=== PATIENT | female | born 1960 | race Caucasian/White ===

== ENCOUNTER 2018-07-04 06:26 | Day surgery (SDC) | payer BC ==
[2018-07-04] MEDS ORDERED: Lactated Ringers 1,000 ML IV SCH (07:00)
[2018-07-04] MEDS ORDERED: Midazolam 1 MG/ML 2 ML SDV ONE (07:16)
[2018-07-04] MEDS ORDERED: fentaNYL 100 MCG/2 ML SDV ONE (07:16)
[2018-07-04] MEDS ORDERED: Propofol 200 MG/20 ML SDV ONE (07:16)
[2018-07-04 09:09] VITALS: BP 105/65
--- NOTE | 2018-07-04 14:02 | OR ---
DATE OF PROCEDURE: 07/04/2018 PREOPERATIVE DIAGNOSIS: Strong family history of colon cancer--father had colon cancer. POSTOPERATIVE DIAGNOSES: 1. Unremarkable colonoscopy. 2. Strong family history of colon cancer--father had colon cancer. PROCEDURE: Colonoscopy to the cecum. SURGEON: Zaid Kohler MD ANESTHESIA: IV anesthesia with monitored anesthesia care. INDICATION: This 57-year-old white female is referred for a colonoscopy because of a strong family history of colon cancer. Her father had colon cancer. Her last colonoscopic exam was done 5 years ago. She was counseled and gave her informed consent to proceed with the colonoscopy. DESCRIPTION OF PROCEDURE: The patient was placed in the left lateral decubitus position. IV anesthesia was administered by the Anesthesia Service. Time-out was held. A rectal exam was performed, which was unremarkable. The flexible video Olympus colonoscope was introduced through her anus, up her rectum and out her colon all the way to the cecum. Once the cecum was reached, the scope was slowly withdrawn examining the mucosa throughout. No mucosal abnormalities were noted. The scope was retroflexed in the rectum with the distal rectum appearing unremarkable. The scope was straightened and removed. She tolerated the procedure well. Zaid Kohler MD /[id number]
== END 2018-07-04 09:17 | disposition home or self-care (01) ==
LOC: JP.SDS 06:26
PROVIDERS: ATTEND Surgery
DX: Z12.11 Encounter for screening for malignant neoplasm of colon (principal); I10 Essential (primary) hypertension; E78.5 Hyperlipidemia, unspecified; Z88.2 Allergy status to sulfonamides; Z88.6 Allergy status to analgesic agent; Z88.8 Allergy status to other drugs, medicaments and biological substances; Z80.0 Family history of malignant neoplasm of digestive organs
CPT/HCPCS: 45378; J2250; J2704; J3010; J7120

== ENCOUNTER 2022-12-06 08:48 | Day surgery (SDC) | payer BC ==
[2022-12-06] MEDS ORDERED: fentaNYL 50 MCG/ML SDV ONE (09:33)
[2022-12-06] MEDS ORDERED: Propofol 200 MG/20 ML SDV ONE (09:33)
[2022-12-06] MEDS ORDERED: Midazolam 1 MG/ML 2 ML SDV ONE (09:33)
[2022-12-06] MEDS ORDERED: Dextrose 5%-Lactated Ringers 1,000 ML IV SCH (10:00)
[2022-12-06] MEDS ORDERED: Pantoprazole 40 MG Vial IVPUSH ONE (10:23)
[2022-12-06 11:36] VITALS: BP 126/72; PULSE 67
== END 2022-12-06 11:20 | disposition home or self-care (01) ==
LOC: JP.SDS 08:48
PROVIDERS: ATTEND Surgery
DX: K28.9 Gastrojejunal ulcer, unspecified as acute or chronic, without hemorrhage or perforation (principal); K21.9 Gastro-esophageal reflux disease without esophagitis; I10 Essential (primary) hypertension; E78.00 Pure hypercholesterolemia, unspecified; E66.9 Obesity, unspecified; Z88.2 Allergy status to sulfonamides; Z88.5 Allergy status to narcotic agent; Z88.8 Allergy status to other drugs, medicaments and biological substances; Z98.84 Bariatric surgery status; Z68.33 Body mass index [BMI] 33.0-33.9, adult
CPT/HCPCS: 43239; 87081; C9113; J2250; J2704; J3010; J7121

== ENCOUNTER 2023-07-18 06:15 | Day surgery (SDC) | payer BC ==
[2023-07-18] MEDS ORDERED: Propofol 200 MG/20 ML SDV ONE ×2 (06:58→07:44)
[2023-07-18] MEDS ORDERED: fentaNYL 50 MCG/ML SDV ONE (06:58)
[2023-07-18] MEDS: Lactated Ringers 1,000 ML IV SCH (07:40)
[2023-07-18 09:01] VITALS: BP 106/61; PULSE 78
== END 2023-07-18 09:13 | disposition home or self-care (01) ==
LOC: JP.SDS 06:15
PROVIDERS: ATTEND Family Medicine
DX: Z12.11 Encounter for screening for malignant neoplasm of colon (principal); Z80.0 Family history of malignant neoplasm of digestive organs; I10 Essential (primary) hypertension; E78.5 Hyperlipidemia, unspecified; Z88.2 Allergy status to sulfonamides; Z88.5 Allergy status to narcotic agent
CPT/HCPCS: 45378; J2704; J3010; J7120